=== PATIENT | male | born 1995 | race Caucasian/White ===

== ENCOUNTER 2016-12-09 19:33 | Emergency (ER) | payer OTHER | END 2016-12-09 20:20 | disposition home or self-care (01) | LOC: FER 19:33 | DX: B34.9 Viral infection, unspecified (principal); J06.9 Acute upper respiratory infection, unspecified; F17.210 Nicotine dependence, cigarettes, uncomplicated | CPT/HCPCS: 87450; 87804; 87899; 99283 ==

== ENCOUNTER 2016-12-10 04:46 | Emergency (ER) | payer OTHER | END 2016-12-10 05:43 | disposition home or self-care (01) | LOC: FER 04:46 | DX: J20.9 Acute bronchitis, unspecified (principal) | CPT/HCPCS: 99283 ==

== ENCOUNTER 2017-01-23 09:50 | Emergency (ER) | payer OTHER | END 2017-01-23 10:38 | disposition home or self-care (01) | LOC: FER 09:50 | DX: K64.8 Other hemorrhoids (principal); F17.200 Nicotine dependence, unspecified, uncomplicated | CPT/HCPCS: 99283 ==

== ENCOUNTER 2020-11-26 21:35 | Emergency (ER) | payer OTHER ==
[~2020-11-26 21:35] MED LIST: IBUPROFEN800 MG PO; ONDANSETRON ODT4 MG SL; PENICILLIN V P250 M1 PO
[2020-11-26] MEDS ORDERED: DICLOFENAC SODI75 MG PO (23:17)
[2020-11-26] MEDS ORDERED: PENICILLIN V P500 MG PO (23:17)
== END 2020-11-26 23:20 | disposition home or self-care (01) ==
LOC: FER 21:35
DX: K02.9 Dental caries, unspecified (principal); K03.81 Cracked tooth; F17.210 Nicotine dependence, cigarettes, uncomplicated
CPT/HCPCS: 99282; Q0163

== ENCOUNTER 2021-01-22 17:04 | Emergency (ER) | payer OTHER ==
[~2021-01-22 17:04] MED LIST changes: +DICLOFENAC SODI75 MG PO; +PENICILLIN V P500 MG PO
[2021-01-22 19:47] LABS: BASOPHIL 0.3 % (0-2); EOSINOPHIL 0.2 % (0-5); HCT 46.1 % (42.0-52.0); HGB 16.4 g/dl (13.2-18.0); LYMPHOCYTE 4.1 % (15-48); MCH 31.7 pg (25.0-31.0); MCHC 35.6 g/dL (32.0-36.0); MCV 89.2 fL (78.0-100.0); MONOCYTE 4.8 % (0-12); MPV 10.8 fL (6.0-9.5); NRBC 0; PLT 242 K/uL (150-400); RBC 5.17 M/uL (4.70-6.00); RDW 12.5 % (11.5-14.0); WBC 17.7 K/uL (4.0-10.5)
[2021-01-22 19:51] LABS: NEUTROPHIL 90.3 % (41-80)
[2021-01-22 20:05] LABS: BILIRUBIN 1+ mg/dL (NEGATIVE); BLOOD NEGATIVE Ery/uL (NEGATIVE); CLARITY CLEAR (CLEAR); COLOR YELLOW (YELLOW); GLUCOSE (U) NORMAL (NORMAL); LEUKOCYTES NEGATIVE Leu/uL (NEGATIVE); NITRITE NEGATIVE (NEGATIVE); PROTEIN NEGATIVE (NEGATIVE)
[2021-01-22 20:28] LABS: ALBUMIN 4.3 g/dL (3.4-5.0); BILIRUBIN - TOTAL 0.9 mg/dL (0.2-1.0); BUN/CREAT RATIO (CALC) 16.2 RATIO; CREATININE 0.74 mg/dL (0.67-1.17); GLOBULIN (CALCULATION) 4.1 g/dL; POTASSIUM 3.3 mmol/L (3.5-5.1); TOTAL PROTEIN 8.4 g/dL (6.4-8.2)
[2021-01-22] MEDS ORDERED: BENTYL10 MG PO (21:12)
[2021-01-22] MEDS ORDERED: ONDANSETRON ODT4 MG SL (21:12)
== END 2021-01-22 21:20 | disposition home or self-care (01) ==
LOC: FER 17:04
PROVIDERS: Emergency Medicine Emergency Medical Services
DX: E86.0 Dehydration (principal); R19.7 Diarrhea, unspecified; F17.210 Nicotine dependence, cigarettes, uncomplicated; Z88.1 Allergy status to other antibiotic agents
CPT/HCPCS: 36415; 74018; 80053; 81003; 83605; 83690; 85025

== ENCOUNTER 2021-03-18 21:59 | Emergency (ER) | payer OTHER ==
[~2021-03-18 21:59] MED LIST changes: +BENTYL10 MG PO
[2021-03-19] MEDS ORDERED: NORCO 5-325 TA1 EACH PO (00:43)
[2021-03-19] MEDS ORDERED: TRIAMCINOLONE 080 GM PR (00:46)
== END 2021-03-19 00:50 | disposition home or self-care (01) ==
LOC: FER 21:59
DX: K64.9 Unspecified hemorrhoids (principal); F17.200 Nicotine dependence, unspecified, uncomplicated
CPT/HCPCS: 99282

== ENCOUNTER 2021-04-21 02:33 | Emergency (ER) | payer OTHER ==
[~2021-04-21 02:33] MED LIST changes: +NORCO 5-325 TA1 EACH PO; +TRIAMCINOLONE 080 GM PR
== END 2021-04-21 05:58 | disposition left against medical advice (07) ==
LOC: FER 02:33
DX: S60.032A Contusion of left middle finger without damage to nail, initial encounter (principal); F17.210 Nicotine dependence, cigarettes, uncomplicated; W23.0XXA Caught, crushed, jammed, or pinched between moving objects, initial encounter; Y92.410 Unspecified street and highway as the place of occurrence of the external cause
CPT/HCPCS: 73130

== ENCOUNTER 2022-02-18 05:12 | Emergency (ER) | payer OTHER ==
[~2022-02-18 05:12] MED LIST changes: +AUGMENTIN 875-1 EACH PO
[2022-02-18 06:20] LABS: BASOPHIL 0.7 % (0-2); EOSINOPHIL 2.5 % (0-5); HCT 41.2 % (42.0-52.0); LYMPHOCYTE 17.4 % (15-48); MCH 31.5 pg (25.0-31.0); MCV 92.8 fL (78.0-100.0); MONOCYTE 9.5 % (0-12); MPV 10.8 fL (6.0-9.5); NEUTROPHIL 69.5 % (41-80); NRBC 0; PLT 201 K/uL (150-400); RBC 4.44 M/uL (4.70-6.00); RDW 12.8 % (11.5-14.0); WBC 8.5 K/uL (4.0-10.5)
[2022-02-18 06:36] LABS: BUN/CREAT RATIO (CALC) 16.4 RATIO; CREATININE 0.61 mg/dL (0.67-1.17); POTASSIUM 3.5 mmol/L (3.5-5.1)
[2022-02-18] MEDS ORDERED: MEDROL 4MG DOSEP4 MG PO (06:39)
[2022-02-18] MEDS ORDERED: MUCINEX DM ER1 EACH PO (06:39)
[2022-02-18] MEDS ORDERED: AMOX TR-K CLV1 EAC4 PO (06:39)
[2022-02-18 06:53] LABS: CORONAVIRUS 2019 SARS-COV-2 NEGATIVE (NEGATIVE); INFLUENZA A NAA NEGATIVE (NEGATIVE)
== END 2022-02-18 07:49 | disposition home or self-care (01) ==
LOC: FER 05:12
PROVIDERS: Internal Medicine
DX: J20.9 Acute bronchitis, unspecified (principal); J02.8 Acute pharyngitis due to other specified organisms; B97.89 Other viral agents as the cause of diseases classified elsewhere; F17.210 Nicotine dependence, cigarettes, uncomplicated; Z20.822 Contact with and (suspected) exposure to COVID-19; Z28.310 Unvaccinated for COVID-19
CPT/HCPCS: 36415; 71045; 80048; 84145; 85025; 87880; J1100; U0002

== ENCOUNTER 2022-05-17 18:04 | Emergency (ER) | payer OTHER ==
[~2022-05-17 18:04] MED LIST changes: +AMOX TR-K CLV1 EAC4 PO; +MEDROL 4MG DOSEP4 MG PO; +MUCINEX DM ER1 EACH PO
[2022-05-17] MEDS ORDERED: AMOXICILLIN500 MG PO (18:32)
== END 2022-05-17 18:35 | disposition home or self-care (01) ==
LOC: FER 18:04
DX: K04.7 Periapical abscess without sinus (principal); F17.210 Nicotine dependence, cigarettes, uncomplicated; Z28.310 Unvaccinated for COVID-19
CPT/HCPCS: 99282; Q0163